=== PATIENT | female | born 1930 | race Caucasian/White ===

== ENCOUNTER 2017-10-17 08:29 | Outpatient (CLI) | payer OTHER | END 2017-10-17 17:00 | disposition home or self-care (01) | LOC: EDBD 08:29 → TOM 08:29 | DX: R91.8 Other nonspecific abnormal finding of lung field (principal) | CPT/HCPCS: 71260; Q9965 ==

== ENCOUNTER 2017-11-11 09:02 | Outpatient (CLI) | payer OTHER ==
[~2017-11-11] VITALS: Ht 152.4 cm; Wt 34.9 kg
== END 2017-11-11 09:20 | disposition home or self-care (01) ==
LOC: OFIC 805 09:02
DX: H93.11 Tinnitus, right ear (principal); H61.23 Impacted cerumen, bilateral

== ENCOUNTER 2017-11-29 09:21 | Outpatient (CLI) | payer OTHER ==
[~2017-11-29] VITALS: Ht 152.4 cm; Wt 34.9 kg
== END 2017-11-29 09:45 | disposition home or self-care (01) ==
LOC: OFIC 805 09:21
DX: H93.11 Tinnitus, right ear (principal)

== ENCOUNTER 2018-03-18 09:30 | Outpatient (CLI) | payer OTHER | END 2018-03-18 10:00 | disposition home or self-care (01) | LOC: NUCLEAR 09:30 | DX: M81.0 Age-related osteoporosis without current pathological fracture (principal) ==

== ENCOUNTER 2018-05-21 08:19 | Outpatient (CLI) | payer OTHER | END 2018-05-21 08:33 | disposition home or self-care (01) | LOC: TOM 08:19 | DX: R19.8 Other specified symptoms and signs involving the digestive system and abdomen (principal) | CPT/HCPCS: 71260; Q9965 ==

== ENCOUNTER 2019-06-05 08:38 | Outpatient (CLI) | payer OTHER | END 2019-06-05 17:00 | disposition home or self-care (01) | LOC: RAD 08:38 | DX: H25.011 Cortical age-related cataract, right eye (principal); Z98.41 Cataract extraction status, right eye ==

== ENCOUNTER 2020-04-22 13:47 | Outpatient (CLI) | payer OTHER | END 2020-04-22 13:55 | disposition home or self-care (01) | LOC: NUCLEAR 13:47 | PROVIDERS: ATTEND Internal Medicine Hematology & Oncology | DX: M81.0 Age-related osteoporosis without current pathological fracture (principal) ==

== ENCOUNTER 2020-05-04 08:55 | Outpatient (CLI) | payer OTHER | END 2020-05-04 09:02 | disposition home or self-care (01) | LOC: RAD 08:55 | PROVIDERS: ATTEND Specialist | DX: J45.998 Other asthma (principal); J44.9 Chronic obstructive pulmonary disease, unspecified ==

== ENCOUNTER 2021-02-22 09:12 | Outpatient (CLI) | payer OTHER | END 2021-02-22 09:21 | disposition home or self-care (01) | LOC: RAD 09:12 | PROVIDERS: ATTEND Specialist | DX: J45.998 Other asthma (principal) ==

== ENCOUNTER 2021-08-22 08:37 | Outpatient (CLI) | payer OTHER | END 2021-08-22 08:50 | disposition home or self-care (01) | LOC: TOM 08:37 | PROVIDERS: ATTEND Specialist | DX: Q61.01 Congenital single renal cyst (principal); A31.0 Pulmonary mycobacterial infection ==

== ENCOUNTER 2021-11-22 08:46 | Outpatient (CLI) | payer OTHER | END 2021-11-22 08:47 | disposition home or self-care (01) | LOC: RAD 08:46 | PROVIDERS: ATTEND Specialist | DX: J45.998 Other asthma (principal) ==

== ENCOUNTER 2022-01-23 19:33 | Emergency (ER) | payer OTHER ==
[~2022-01-23] VITALS: Ht 144.8 cm; Wt 49.9 kg
[2022-01-23] MEDS ORDERED: VASOTEC2.5 MG (19:55)
[2022-01-23] MEDS ORDERED: CALTRATE 600 +1 EAC1 (19:55)
[2022-01-23] MEDS ORDERED: SIMVASTATIN5 MG (19:56)
[2022-01-23] MEDS ORDERED: LEVOTHYROXINE25 MCG (19:56)
[2022-01-23] MEDS ORDERED: VITAMIN B122500 MC1 (19:56)
== END 2022-01-23 22:08 | disposition home or self-care (01) ==
LOC: ER 19:33
DX: S52.592A Other fractures of lower end of left radius, initial encounter for closed fracture (principal); W18.30XA Fall on same level, unspecified, initial encounter; Y93.9 Activity, unspecified; Y92.9 Unspecified place or not applicable; Z91.013 Allergy to seafood